=== PATIENT | female | born 1950 | race Caucasian/White ===

== ENCOUNTER 2020-08-27 04:21 | Day surgery (SDC) | payer OTHER, BC ==
[2020-08-27] MEDS ORDERED: FERRIC CARBOXYMALTOSE 750 MG in SODIUM CHLORIDE 250 ML IVPB ONE (12:00)
[2020-08-27 13:30] VITALS: BP 135/83; PULSE 69; TEMP 98.6
== END 2020-08-27 13:15 | disposition home or self-care (01) ==
LOC: JINFUSION 04:21
PROVIDERS: ATTEND Psychiatry & Neurology Psychiatry
PROC: 3E033GC Introduction of Other Therapeutic Substance into Peripheral Vein, Percutaneous Approach (ICD-10-PCS; principal; 2020-08-27)
DX: D50.9 Iron deficiency anemia, unspecified (principal)
CPT/HCPCS: 96365; J1439

== ENCOUNTER 2020-09-03 04:28 | Day surgery (SDC) | payer OTHER, BC ==
[2020-09-03] MEDS ORDERED: FERRIC CARBOXYMALTOSE 750 MG in SODIUM CHLORIDE 250 ML IVPB ONE (10:00)
[2020-09-03 11:41] VITALS: PULSE 72
[2020-09-03 12:12] VITALS: BP 116/60; TEMP 98.2
== END 2020-09-03 12:05 | disposition home or self-care (01) ==
LOC: JINFUSION 04:28
PROVIDERS: ATTEND Psychiatry & Neurology Psychiatry
PROC: 3E033GC Introduction of Other Therapeutic Substance into Peripheral Vein, Percutaneous Approach (ICD-10-PCS; principal; 2020-09-03)
DX: D50.9 Iron deficiency anemia, unspecified (principal)
CPT/HCPCS: 96365; J1439

== ENCOUNTER 2024-05-09 04:10 | Inpatient (IN) | payer OTHER, BC ==
[2024-05-09] MEDS ORDERED: ONDANSETRON 4 MG/2 ML VIAL IVPUSH PRN (09:35)
[2024-05-09] MEDS ORDERED: ACETAMINOPHEN 1000 MG/100 ML BAG IVPB ONE (09:35)
[2024-05-09] MEDS ORDERED: ALBUTEROL SO4 HFA INHALER IH ONE (10:00)
[2024-05-09] MEDS ORDERED: MIDAZOLAM HCL 2 MG/2 ML SINGLE DOSE VIAL ONE (10:00)
[2024-05-09] MEDS ORDERED: LIDOCAINE HCL/PF 2% SDV 5ML VIAL ONE (10:01)
[2024-05-09] MEDS ORDERED: PROPOFOL 40 ML ONE (10:01)
[2024-05-09] MEDS ORDERED: GLYCOPYRROLATE 0.2 MG/1 ML VIAL ONE (10:38)
[2024-05-09] MEDS ORDERED: ROCURONIUM BROMIDE 50 MG/5 ML SYRINGE ONE ×2 (10:45→12:26)
[2024-05-09] MEDS: ceFAZolin SODIUM 1 GM VIAL IVPB ONE (10:53)
[2024-05-09] MEDS: BUPIVACAINE HCL/PF 0.25% (2.5MG/ML) 10 ML VIAL IJ ONE ×2 (10:56→11:07)
[2024-05-09] MEDS ORDERED: ONDANSETRON 4 MG/2 ML VIAL ONE (10:59)
[2024-05-09] MEDS ORDERED: DEXAMETHASONE SOD PHOSPHATE 4 MG/1 ML VIAL ONE (10:59)
[2024-05-09] MEDS ORDERED: ACETAMINOPHEN INJECTION 100 ML ONE (12:51)
[2024-05-09] MEDS: LACTATED RINGERS SOLUTION 1,000 ML IV SCH (14:00)
[2024-05-09] MEDS: ALBUTEROL SO4 2.5/IPRATROPIUM 0.5 INH SOL 3 ML VIAL.NEB. NEB ONE (14:20)
[2024-05-09] MEDS ORDERED: oxyCODONE HCL 5 MG TABLET PO PRN (15:03)
[2024-05-09] MEDS ORDERED: CEFOXITIN SODIUM 2 GM in DEXTROSE 5%-WATER - 100 ML IVPB SCH (18:00)
[2024-05-09] MEDS: ACETAMINOPHEN 1000 MG/100 ML BAG IVPB SCH (18:29)
[2024-05-09] MEDS: oxyCODONE HCL 5 MG TABLET PO PRN (19:49)
[2024-05-09] MEDS: METOCLOPRAMIDE HCL INJECTION 10 MG/2 ML VIAL IVPUSH SCH (19:54)
[2024-05-09] MEDS: CEFOXITIN SODIUM/DEXTROSE,ISO 2 GM/50 ML BAG IVPB SCH (20:41)
[2024-05-09] MEDS: ONDANSETRON 4 MG/2 ML VIAL IVPUSH SCH (21:00)
[2024-05-09] MEDS: GABAPENTIN 300 MG CAPSULE PO SCH (21:41)
[2024-05-09] MEDS: rOPINIRole HCL 1 MG TABLET (FP) PO SCH (21:42)
[2024-05-10] MEDS: LEVOTHYROXINE NA 75 MCG TABLET (FP) PO SCH (06:48)
[2024-05-10] MEDS: LISINOPRIL 20 MG TABLET PO SCH (09:30)
[2024-05-10] MEDS: ENOXAPARIN NA (PORCINE) 40 MG/0.4 ML DISP.SYRIN SQ SCH (09:32)
[2024-05-10] MEDS: amLODIPine BESYLATE 10 MG TABLET (FP) PO SCH (09:32)
[2024-05-10 11:38] LABS: BASO % 0.1 % (0-2.0); HEMATOCRIT 40.8 % (32.4-45.2); LYMPH % 12.7 % (8-40); MCH 26.1 pg (25.7-33.7); MCHC 31.7 g/dl (32.0-36.0); MEAN CELL VOLUME 82.2 fl (80-96); MEAN PLT VOLUME 9.6 fl (7.5-11.1); MONO % 7.7 % (3.8-10.2); NEUT % 79.5 % (42.8-82.8); PLATELET COUNT 213 10^3/uL (134-434); RBC 4.96 M/mm3 (3.60-5.2); RDW 14.5 % (11.6-15.6); WHITE BLOOD COUNT 13.1 K/mm3 (4.0-10.0)
[2024-05-10 12:08] LABS: POTASSIUM 4.6 mmol/L (3.5-5.1)
[2024-05-10 12:09] LABS: MAGNESIUM 1.9 mg/dL (1.8-2.4)
[2024-05-10 12:12] LABS: CREATININE 1.3 mg/dL (0.55-1.3)
[2024-05-10 15:48] VITALS: RESP 18
[2024-05-11 09:49] LABS: BASO % 0.5 % (0-2.0); EOS % 0.8 % (0-4.5); HEMATOCRIT 38.7 % (32.4-45.2); LYMPH % 18.1 % (8-40); MCH 27.3 pg (25.7-33.7); MCHC 33.5 g/dl (32.0-36.0); MEAN CELL VOLUME 81.3 fl (80-96); MEAN PLT VOLUME 9.4 fl (7.5-11.1); MONO % 8.7 % (3.8-10.2); NEUT % 71.9 % (42.8-82.8); PLATELET COUNT 183 10^3/uL (134-434); RBC 4.77 M/mm3 (3.60-5.2); RDW 14.4 % (11.6-15.6); WHITE BLOOD COUNT 8.1 K/mm3 (4.0-10.0)
[2024-05-11 09:54] VITALS: BP 105/62; PULSE 92; TEMP 97.9
[2024-05-11 10:03] LABS: POTASSIUM 4.3 mmol/L (3.5-5.1)
[2024-05-11 10:11] LABS: CALCIUM 8.9 mg/dL (8.5-10.1)
[2024-05-11 10:12] LABS: BLOOD UREA NITROGEN 22.8 mg/dL (7-18)
[2024-05-11 10:18] LABS: BILIRUBIN,TOTAL 0.8 mg/dL (0.2-1)
[2024-05-11 12:40] LABS: ALBUMIN 3.2 g/dl (3.4-5.0)
== END 2024-05-11 12:41 | disposition home or self-care (01) | DRG 328 ==
LOC: SUATTDRO 04:10 → JASUSAT 04:10 → J8W 18:20 → JASUSAT 18:21
PROVIDERS: ADMIT Internal Medicine; ATTEND Nurse Practitioner Acute Care
PROC: 0BQT4ZZ Repair Diaphragm, Percutaneous Endoscopic Approach (ICD-10-PCS; principal; 2024-05-09 10:00)
PROC: 0DV44ZZ Restriction of Esophagogastric Junction, Percutaneous Endoscopic Approach (ICD-10-PCS; 2024-05-09 10:00)
DX: K44.9 Diaphragmatic hernia without obstruction or gangrene (principal); E03.9 Hypothyroidism, unspecified; I10 Essential (primary) hypertension; K21.9 Gastro-esophageal reflux disease without esophagitis
CPT/HCPCS: 36415; 80048; 80053; 83735; 85025; 86140; 86850; 86900; 86901; 94640; 94760; J0131; J1644